=== PATIENT | female | born 1970 | race Caucasian/White ===

== ENCOUNTER 2019-08-08 14:41 | Inpatient (IN) | payer MEDICAID, SELFPAY ==
[2019-08-08] MEDS ORDERED: Ketorolac Tromethamine 30 MG/ML VIAL ONE (16:58)
[2019-08-08 17:07] LABS: #Basophils 0.1 thou/uL (0.0-0.2); #Eosinphils 0.4 thou/uL (0.0-0.7); #Lymphocytes 2.7 thou/uL (1.20-3.40); #Monocytes 0.5 thou/uL (0.11-0.59); #Neutrophils 11.5 thou/uL (1.40-6.50); %Basophils 0.4 % (0.0-1.0); %Eosinophils 2.5 % (0.0-10.0); %Lymphocytes 17.6 % (21.0-51.0); %Monocytes 3.2 % (0.0-10.0); %Neutrophils 76.3 % (42.0-75.0); Hemoglobin 15.1 g/dL (12.0-16.0); Mean Corpuscular HGB CONC 34.8 g/dL (32.0-36.0); Mean Corpuscular Hemoglobin 29.3 pg (27.0-31.0); Mean Corpuscular Volume 84.2 fL (78.0-98.0); Mean Platelet Volume 6.8 fL (7.4-10.4); Platelet Count 285 thou/uL (130-400); RBC Distribution Width 11.5 % (11.5-14.5); Red Blood Cell (RBC) Count 5.15 mill/uL (4.20-5.40); White Blood Cell (WBC) Count 15.1 thou/uL (4.8-10.8)
[2019-08-08 17:26] LABS: Bacteria/HPF 4+ HPF (None Seen); Bilirubin Negative (Negative); Blood, Urine 2+ (Negative); Clarity Turbid (Clear); Glucose, Urine (Dipstick) Normal (Negative); Leukocyte 250 Leu/uL (Negative); Nitrite 1+ (Negative); Pregnancy Test - Urine (BHCG) Negative (Negative); Pregu Control Background? CLEAR/WHITE (CLR/WHITE); Pregu Control Bar Appear? YES (CONTROL BAR); Protein, Urine (Dipstick) 20 mg/dL (Neg-Trace); RBC/HPF Greater than 50 HPF (0-3); Specific Gravity 1.024 (1.002-1.036); WBC/HPF 21-50 HPF (0-3)
[2019-08-08 17:38] LABS: ALT (SGPT) 37 U/L (8-55); AST (SGOT) 39 U/L (5-34); Albumin 4.1 g/dL (3.5-5.0); Alkaline Phosphatase 106 U/L (40-110); Anion Gap 13 mmol/L (10-20); BUN (Urea Nitrogen) 12 mg/dL (7.0-18.7); Bilirubin, Total 0.5 mg/dL (0.2-1.2); Calc. Creatinine Clearance 0 mL/min (70-130); Calcium 9.5 mg/dL (7.8-10.44); Carbon Dioxide 21 mmol/L (22-29); Chloride 106 mmol/L (98-107); Estimated GFR-MDRD Greater than 90; Globulin 3.5 g/dL (2.4-3.5); Glucose 89 mg/dL (70-105); Lipase 31 U/L (8-78); Potassium 3.6 mmol/L (3.5-5.1); Protein, Total 7.6 g/dL (6.0-8.3); Sodium 136 mmol/L (136-145)
[2019-08-08] MEDS ORDERED: cefTRIAXone\\ROCEPHIN 1 GM VIAL ONE (17:53)
--- NOTE | 2019-08-08 18:43 | CT ---
CT abdomen and pelvis noncontrast No prior comparison CLINICAL HISTORY: Left flank pain FINDINGS: Proximal left ureteral calculus measuring 9 mm results in mild to moderate left hydronephro sis. No right-sided urolithiasis. Hepatic steatosis. Prior cholecystectomy. There is colonic diverticulosis. There is motion artifact. There is heterogeneity of the bilateral adnexa, more notable on the right. Mild heterogeneity of the uterus also noted. No free air. No significant ascites. IMPRESSION: Mild to moderate left hydronephrosis as result of 9 mm proximal left ureteral calculus. R ecommend urology consultation for further care. Heterogeneity of uterus and adnexa. Follow-up with pelvic ultrasound recommended to further evaluate. Additional details are described above, within limitations of noncontrast technique. Transcribed Date/Time: 08/08/2019 6:51 PM
[2019-08-08] MEDS ORDERED: Ondansetron PF 4 MG/2 ML Vial IVP PRN (21:17)
[2019-08-08] MEDS ORDERED: Ondansetron ODT 4 MG TAB SL PRN (21:17)
[2019-08-08] MEDS ORDERED: Morphine 2 MG/ML SYRINGE SLOW IVP PRN (21:18)
[2019-08-08] MEDS ORDERED: Morphine 4 MG/ML VIAL SLOW IVP PRN (21:19)
[2019-08-08 21:57] VITALS: BMI 25.7
[2019-08-08] MEDS: Lactated Ringer's 1,000 ML IV SCH (23:04)
[2019-08-09] MEDS: Lactated Ringer's 1,000 ML IV SCH (05:09)
[2019-08-09 06:28] LABS: #Eosinphils 0.5 thou/uL (0.0-0.7); #Lymphocytes 3.1 thou/uL (1.20-3.40); #Monocytes 0.8 thou/uL (0.11-0.59); #Neutrophils 8.1 thou/uL (1.40-6.50); %Basophils 0.3 % (0.0-1.0); %Eosinophils 3.6 % (0.0-10.0); %Monocytes 6.4 % (0.0-10.0); %Neutrophils 64.6 % (42.0-75.0); Hemoglobin 13.8 g/dL (12.0-16.0); Mean Corpuscular HGB CONC 34.7 g/dL (32.0-36.0); Mean Corpuscular Hemoglobin 29.9 pg (27.0-31.0); Mean Corpuscular Volume 86.1 fL (78.0-98.0); Mean Platelet Volume 6.9 fL (7.4-10.4); Platelet Count 246 thou/uL (130-400); RBC Distribution Width 11.7 % (11.5-14.5); Red Blood Cell (RBC) Count 4.63 mill/uL (4.20-5.40); White Blood Cell (WBC) Count 12.5 thou/uL (4.8-10.8)
[2019-08-09 07:15] LABS: ALT (SGPT) 28 U/L (8-55); AST (SGOT) 29 U/L (5-34); Albumin 3.5 g/dL (3.5-5.0); Alkaline Phosphatase 94 U/L (40-110); Anion Gap 12 mmol/L (10-20); BUN (Urea Nitrogen) 9 mg/dL (7.0-18.7); Calc. Creatinine Clearance 116 mL/min (70-130); Calcium 8.6 mg/dL (7.8-10.44); Carbon Dioxide 20 mmol/L (22-29); Chloride 106 mmol/L (98-107); Estimated GFR-MDRD Greater than 90; Glucose 84 mg/dL (70-105); Potassium 3.6 mmol/L (3.5-5.1); Protein, Total 6.5 g/dL (6.0-8.3); Sodium 134 mmol/L (136-145)
[2019-08-09] MEDS ORDERED: Promethazine HCl 25 MG/ML VIAL IM PRN ×2 (12:59→14:50)
[2019-08-09] MEDS ORDERED: Promethazine HCl 25 MG/ML VIAL SLOW IVP PRN ×2 (12:59→14:50)
[2019-08-09] MEDS ORDERED: Ondansetron HCl/PF 4 MG/2 ML Vial IVP PRN (12:59)
[2019-08-09] MEDS ORDERED: cefTRIAXone\\ROCEPHIN 1 GM VIAL ONE (13:53)
[2019-08-09] MEDS ORDERED: Sodium Chloride 0.9% 100 ML ONE (13:53)
[2019-08-09] MEDS ORDERED: Fentanyl 100 MCG/2 ML VIAL ONE (14:00)
[2019-08-09] MEDS ORDERED: PACU-Morphine 4MG/ML VIAL SLOW IVP PRN (14:50)
[2019-08-09] MEDS ORDERED: Ketorolac Tromethamine 30 MG/ML VIAL IVP PRN (14:50)
[2019-08-09] MEDS ORDERED: Meperidine HCl/PF 25 MG/ML VIAL SLOW IVP PRN (14:50)
[2019-08-09] MEDS ORDERED: Morphine 2 MG/ML SYRINGE SLOW IVP PRN (16:28)
[2019-08-09] MEDS: traMADol HCl 50 MG TAB PO PRN (19:54)
[2019-08-09] MEDS: Oxybutynin 5 MG TAB PO PRN (20:05)
[2019-08-09] MEDS: Phenazopyridine HCl 97.5 MG TABLET PO PRN (20:05)
--- NOTE | 2019-08-09 20:56 | OP ---
DATE OF PROCEDURE: 08/09/2019 SERVICE: Urology. PREOPERATIVE DIAGNOSIS: Left ureteral stone with urinary tract infection. POSTOPERATIVE DIAGNOSIS: Left ureteral stone with urinary tract infection. PROCEDURE PERFORMED: Cystoscopy with left ureteral stent placement, 6 x 24 double-J stent. INDICATION FOR PROCEDURE: Ms. Botello is a 49-year-old female, who presented to the ER with left flank pain and a CT demonstrating a 9-mm proximal ureteral stone. She had evidence of urinary tract infection by UA. She has already been started on antibiotics and we are now placing ureteral stent to prevent sepsis. Risks and benefits of the procedure have been discussed and she has agreed to proceed forward. DESCRIPTION OF PROCEDURE: After identification of armband and verification of consent, the patient was brought back to the operating room where she underwent general anesthesia with an LMA. She was then placed in dorsal lithotomy position and prepped and draped in usual sterile fashion. After appropriate time-out, a lubricated 22-Spanish rigid cystoscope was introduced per urethra into the bladder and attention turned toward the left ureteral orifice. The orifice was cannulated with a 0.035 Sensor wire up to the level of renal pelvis. A 6 x 24 double-J stent was advanced over the Sensor wire up to the level of the renal pelvis and the wire removed leaving a good curl in the kidney and a good curl in the bladder. The bladder was then emptied and the cystoscope removed. The patient then awakened, taken to PACU for recovery in stable condition. COMPLICATIONS: None. ESTIMATED BLOOD LOSS: Minimal. RETAINED TUBES AND DRAINS: A 6 x 24 double-J stent on the left. SPECIMENS: None. FINDINGS: There is a possible stone that may have been the ureteral stone which was displaced into the lower pole during stent placement. Alternatively, it is possible the stone is radiolucent. DISPOSITION: The patient will be kept in the hospital until the culture results finalized. At that point, she can be discharged home on oral antibiotics and plan for definitive ureteroscopy at a later date. Job ID: [id number]
[2019-08-09] MEDS ORDERED: FLU VACC QS2019-20(6MOS UP)/PF 60 MCG/0.5 ML SYRINGE IM ONE (21:00)
--- NOTE | 2019-08-09 21:12 | HP ---
REASON FOR ADMISSION: Urinary tract infection with ureteral stone. CHIEF COMPLAINT: "My back hurts and I have a kidney stone." HISTORY OF PRESENT ILLNESS: Mrs. Botello is a 49-year-old female with a history of nephrolithiasis who presented to the emergency room with approximately a 1-to 2-day history of left flank pain. She stated the pain started yesterday and progressively got worse to the point, where she was having uncontrolled pain with nausea, but no vomiting. She had no fevers. She did not have any hematuria. The pain did radiate somewhat around toward her groin, but mainly stayed in her left back. It was a sharp stabbing nature. She went to the emergency room where a CT was done, which demonstrated a 9-mm left ureteral stone with [id number] hydronephrosis. Her urinalysis had evidence of a urinary tract infection, although she did not have any symptoms of sepsis, SIRS criteria, or systemic toxicity. Due to the infection and ureteral stone, I recommended that she be admitted to the hospital with IV antibiotics and for ureteral stent placement. On my discussion with the patient, she states she has had no prior problems with recurrent urinary tract infections, although she has had previous kidney stones and apparently has undergone ureteroscopy with laser lithotripsy in the past with a urologist here at [place], although I cannot find any record of this within the computer system. She does not have any significant voiding difficulties or voiding problems. She denies any history of spontaneous hematuria. ALLERGIES: NONE. CURRENT MEDICATIONS: None. PAST MEDICAL HISTORY: Significant for nephrolithiasis. PAST SURGICAL HISTORY: Significant for prior ureteroscopy and laser lithotripsy with prior cholecystectomy. FAMILY HISTORY: Noncontributory for nephrolithiasis. SOCIAL HISTORY: The patient denies alcohol abuse, illicit drug use, or tobacco abuse. REVIEW OF SYSTEMS: A 12-point review of system was reviewed with the patient and negative other than what was commented on the HPI. PHYSICAL EXAMINATION: VITAL SIGNS: Temperature 97.8, pulse 64, respirations 14, blood pressure 134/79, and saturation 93% on room air. GENERAL: No apparent distress, communicative and alert, conversant, well nourished, well developed, appears stated age. HEENT: Normocephalic, atraumatic. Pupils are symmetric and round. Sclerae are nonicteric. Moist mucous membranes. Trachea midline. CARDIOVASCULAR: Regular rate and rhythm. Normal S1, S2. Symmetric pulses. CHEST: No increased work of breathing. Symmetric expansion of the lungs. Clear anteriorly. ABDOMEN: Soft, nontender, and nondistended. Positive bowel sounds. No significant CVA tenderness. No suprapubic tenderness. No organomegaly. Previously well-healed port site scars without hernia. GENITOURINARY: Deferred at this time. EXTREMITIES: No clubbing, cyanosis, or edema. MUSCULOSKELETAL: No joint deformities or joint erythema noted. Full range of motion. NEUROLOGIC: Cranial nerves 2 through 12 are grossly intact. No focal or sensory motor deficits identified. SKIN: Warm and dry. No rashes or lesions. Good turgor. PSYCHIATRIC: Alert and oriented x3. Appropriate mood and affect. LYMPHS: No enlarged lymph nodes in the cervical, supraclavicular, axillary, or inguinal regions. LABORATORY EVALUATION: The full set of labs are in the [facility] system, which I have reviewed. Of note, the patient's white count was 15.1, is now decreased to 12.5. Creatinine is 0.62. Urinalysis demonstrates nitrite positive urine with blood, leukocyte esterase, 4+ bacteria, squamous cells, and wbc's and rbc's. Urine culture taken upon admission shows mixed bacteria. There is isolation of pathogens in progress. ASSESSMENT AND PLAN: A 49-year-old female with a high likelihood of urinary tract infection with left ureteral stone without evidence of sepsis. She has already been started on ceftriaxone and we will continue this until cultures' result. If the cultures are contaminated, we will probably switch her to either levofloxacin or Cipro and treat for 7 days. She will go to the OR for a cystoscopy and left ureteral stent placement. I talked to her about stent placements and she is not familiar with this even though having had previous ureteroscopy. I went over the process, how it is done and postoperative care as well as postoperative restrictions and activities. I have also told her it is very important that she not disappear and keep follow up appointments to avoid significant harm, renal injury, or stone development due to a retained stent. Risks and benefits of the surgery were discussed, which include but were not limited to bleeding, worsening infection, damage to the ureter and ureteral strictures, inability to pass the stent, and need for further surgeries. She understands these risks and states she is willing to go forward with ureteral stenting. After treating with antibiotics, we will plan definitive stone treatment with laser lithotripsy in the future. I will plan to see her back as an outpatient afterward and we will pick a date for ureteroscopy in the future. Job ID: [id number]
[2019-08-10] MEDS: Phenazopyridine HCl 97.5 MG TABLET PO PRN ×2 (09:22→21:45)
[2019-08-10] MEDS: Oxybutynin 5 MG TAB PO PRN (09:22)
--- NOTE | 2019-08-10 13:55 | PRG ---
DATE OF SERVICE: 08/10/2019 SUBJECTIVE: The patient states she is feeling fine. She is having urinary frequency, but no significant pain or hematuria. OBJECTIVE: VITAL SIGNS: Temperature 98.6, pulse 69, respirations 16, blood pressure 131/80, saturation 97% on room air. GENERAL: No apparent distress. Communicative and alert. CARDIOVASCULAR: Regular rate and rhythm. ABDOMEN: Soft, nontender, and nondistended. Positive bowel sounds. EXTREMITIES: No clubbing, cyanosis, or edema. LABORATORY EVALUATION: The full set of labs are in the [facility] system, which I have reviewed. Urine cultures are still proceeding with mixed organisms, speciation to follow. ASSESSMENT AND PLAN: A 49-year-old female with a urinary tract infection with left ureteral stone, status post left ureteral stent placement. Once cultures are finalized, she can be transitioned over to oral antibiotics and discharged home. If cultures come back mixed with no identifiable organism, we will just plan to treat her with ciprofloxacin 500 mg p.o. b.i.d., for a total of 7 days, which would give her enough antibiotics to go to Tuesday. I will plan to bring her back on Tuesday for surgery for removal of the ureteral stone. I have gone over the surgery with her in detail including risks and benefits, the risks which include, but are not limited to bleeding, infection, damage to the ureter, ureteral injury or stricture, renal injury, incomplete stone removal, and need for further surgeries. She understands these risks and states she is willing to proceed forward. Surgery will be scheduled for next Tuesday. Job ID: [id number]
[2019-08-10] MEDS ORDERED: cefTRIAXone\\ROCEPHIN 1 GM in Sodium Chloride 0.9% 100 ML IVPB SCH (15:00)
[2019-08-10] MEDS: traMADol HCl 50 MG TAB PO PRN (21:45)
[2019-08-11 07:35] VITALS: BP 132/80; TEMP 98
--- NOTE | 2019-08-11 10:17 | DIS ---
DATE OF ADMISSION: 08/08/2019 DATE OF DISCHARGE: 08/10/2019 PRIMARY UROLOGIST: Dr. García Harmon. DISPOSITION: To home. DISCHARGE INSTRUCTIONS: followup, outpatient ureteroscopy laser lithotripsy next Tuesday. DISCHARGE MEDICATIONS: 1. Tramadol 50 mg #30 one to two p.o. q.6 hours p.r.n. 2. Ditropan 10 mg XL one p.o. daily. 3. Colace 100 mg one p.o. b.i.d. 4. Ciprofloxacin 500 mg one p.o. b.i.d. for 7 days. 5. Azo p.r.n. [id number]-[id number] for dysuria. BRIEF HOSPITAL COURSE: Ms. Botello is a 49-year-old female, non- Uzbek speaking, seen by Dr. Harmon due to obstructing ureteral calculi, status post stent. Her urine culture is contaminated demonstrating mixed kenan. She is clinically stable for discharge. Per Dr. Harmon's recommendations, if it is mixed kenan, he is recommending ciprofloxacin for course of 7 days. He has arranged outpatient ureteroscopy, laser lithotripsy next Tuesday. I informed the patient that she should contact our office next week to confirm the course of her care with Dr. Harmon. CONDITION: Stable. Job ID: [id number] MTDD
--- NOTE | 2019-08-11 14:07 | EKG ---
Test Reason : Blood Pressure : / mmHG Vent. Rate : 068 BPM Atrial Rate : 068 BPM P-R Int : 134 ms QRS Dur : 074 ms QT Int : 388 ms P-R-T Axes : 061 006 022 degrees QTc Int : 412 ms Normal sinus rhythm with sinus arrhythmia Normal ECG Confirmed by AIDEN FOY ([id number]), order editor LANDON CARBALLO ([id number]) on 08/11/2019 2:06:43 PM Referred By: Confirmed By:AIDEN FOY
--- NOTE | 2019-08-14 05:53 | PQF ---
NANCY NIEVES KATHY [id number] CLINICAL DOCUMENTATION CLARIFICATION FORM: POST DISCHARGE Addendum to original discharge summary date: ____ Late entry note date: __ DATE: 08/14/19 ATTN: Deepti Perez Please exercise your independent, professional judgment in responding to the clarification form. Clinical indicators are provided on the bottom of this form for your review In your clinical opinion, based on clinical findings below, can you please clarify clinical significance of Hydronephrosis in CT impression if : Please check appropriate box(s): [ ] Hydronephrosis is clinically significant [ ] Hydronephrosis is not clinically significant [ ] Other diagnosis [ ] Unable to determine In addition, please specify: Present on Admission (POA): [ ] Yes [ ] No [ ] Unable to determine For continuity of documentation, please document condition throughout progress notes and discharge summary. Thank You. CLINICAL INDICATORS - SIGNS / SYMPTOMS / LABS CT Abdomen 08/08 Impression :Mild to moderate left hydronephrosis as result of 9mm proximal left ureteral calculus H&P 08/11 Dr. Harmon She states her back hurts and have a kidney stone H&P 08/11 Dr. Harmon History of nephrolithiasis H&P 08/11 Dr. Harmon Presented to emergecy room with approximately a 1-to- 2 day history of left flank pain H&P 08/11 Dr. Harmon Her urinary had evidence of urinary tract infection RISK FACTORS H&P 08/08 p2 - Urinary tract infection H&P 08/08 p2 - Left Ureteral stone TREATMENTS: MAR 08/08/19 IV Ceftriaxone Operative note 08/09 -Cystocopy and left ureteral stent placement MTDD
== END 2019-08-11 10:10 | disposition home or self-care (01) | DRG 660 ==
LOC: ERS 14:41 → SURG A 21:04
PROVIDERS: ADMIT Urology; ATTEND Urology
PROC: 0T778DZ Dilation of Left Ureter with Intraluminal Device, Via Natural or Artificial Opening Endoscopic (ICD-10-PCS; principal; 2019-08-09)
PROC: 3E02340 Introduction of Influenza Vaccine into Muscle, Percutaneous Approach (ICD-10-PCS; 2019-08-09)
DX: N20.1 Calculus of ureter (principal); N39.0 Urinary tract infection, site not specified; Z23 Encounter for immunization; Z90.49 Acquired absence of other specified parts of digestive tract; Z87.442 Personal history of urinary calculi
CPT/HCPCS: 36415; 36416; 74176; 76000; 80053; 81003; 81015; 81025; 83690; 85025; 87086; 93005; 96361; 96365; 96375; J0131; J0696; J1885; J2270; J3010; J3490

== ENCOUNTER 2019-08-17 09:15 | Day surgery (SDC) | payer SELFPAY ==
[2019-08-16 11:30] VITALS: BMI 28.7
[2019-08-17] MEDS ORDERED: Levofloxacin 500 mg/D5W 100 ml Premix Bag ONE (09:39)
--- NOTE | 2019-08-17 10:27 | RAD ---
XR Chest Pa Lat STANDARD HISTORY: Preoperative evaluation COMPARISON: None FINDINGS: The heart size is normal. The lungs are well expanded without focal areas of consolidation, pneumothorax or pleural effusions. IMPRESSION: No radiographic evidence of acute cardiopulmonary process.
[2019-08-17] MEDS ORDERED: Fentanyl 100 MCG/2 ML VIAL ONE ×2 (11:59→13:04)
[2019-08-17] MEDS ORDERED: Ketorolac Tromethamine 30 MG/ML VIAL ONE (12:45)
[2019-08-17] MEDS ORDERED: Dexamethasone 20 MG/5 ML VIAL ONE (12:45)
[2019-08-17] MEDS ORDERED: Ondansetron PF 4 MG/2 ML Vial ONE (12:45)
[2019-08-17] MEDS ORDERED: PROPOFOL 200 MG/20 ML VIAL ONE (12:45)
[2019-08-17] MEDS ORDERED: B & O ONE (13:04)
[2019-08-17] MEDS ORDERED: Phenazopyridine HCl 97.5 MG TABLET ONE (14:07)
[2019-08-17] MEDS ORDERED: Oxybutynin 5 MG TAB ONE (14:07)
--- NOTE | 2019-08-17 16:59 | OP ---
DATE OF PROCEDURE: 08/17/2019 SERVICE: Urology. PREOPERATIVE DIAGNOSIS: Left ureteral stone. POSTOPERATIVE DIAGNOSIS: Left renal stone. PROCEDURES PERFORMED: Left ureteroscopy, laser lithotripsy, basket extraction of stone, and placement of a 6 x 24 double-J stent with string attached. INDICATIONS FOR PROCEDURE: Ms. Botello is a 49-year-old female, who initially presented last week for ureteral stone with urinary tract infection. She was treated with antibiotics and sent home on antibiotics after undergoing an urgent ureteral stent placement. She has completed her week of antibiotics and is now coming in for definitive stone management with ureteroscopy. All risks and benefits as well as alternatives have been discussed and she has agreed to proceed forward. DESCRIPTION OF PROCEDURE: After identification of armband and verification of consent, the patient was brought back to the operating room. She underwent general anesthesia with an LMA. She was then placed in the dorsal lithotomy position and prepped and draped in usual sterile fashion. After appropriate time-out, a lubricated 22-Turkish rigid cystoscope was introduced per urethra into the bladder and attention turned to the left ureteral orifice, from which there was a stent emanating. Flexible grasper was used to grasp the stent and bring it up to the level of the urethral meatus. A 0.035 Sensor wire was advanced up to the ureteral stent into the renal pelvis. The stent was then removed leaving the wire in place. The dual-lumen catheter was then advanced over the Sensor wire up to the level of proximal ureter. An Amplatz Super Stiff wire was then placed through the second lumen into the renal pelvis. Dual-lumen was then removed and an 11/13 x 36 cm ureteral access sheath was advanced over the Super Stiff wire up to the level of the proximal ureter. The inner cannula and the Super Stiff wire were then removed leaving the outer sheath and Sensor wire in place as a safety wire. A flexible digital ureteroscope was then passed into the ureteral access sheath into the renal pelvis, where the stone was encountered in the lower pole of the kidney. There were no other stones noted on pyeloscopy. A 273 micron ball-tip laser fiber was used to fragment the stone into smaller pieces and the pieces were then extracted using a 1.9-Turkish ZeroTip Nitinol basket. Upon completion, there were no stone fragments remaining that were over a millimeter in size. There were a few small granules in the lower pole, satisfied that all the stone had been removed. Pull-back ureteroscopy was employed, no additional stones were found within the ureter. The ureteroscope and sheath were then removed and the cystoscope was backloaded over the Sensor wire back into the bladder. A 6 x 24 double-J stent with string attached was advanced over the Sensor wire into the kidney. The wire was removed leaving a good curl in the kidney and a good curl in the bladder. The bladder was emptied and the cystoscope removed. The string to the stent was affixed to the patient's inner thigh with an OpSite. A B and O suppositories were placed in the rectum. She was then taken out of positioning, awakened, taken to PACU for recovery in stable condition. COMPLICATIONS: None. ESTIMATED BLOOD LOSS: Minimal. RETAINED TUBES OR DRAINS: A 6 x 24 double-J stent on the left with string attached. SPECIMEN: Stone for stone analysis. DISPOSITION: The patient will be discharged home and follow up with me in approximately 2 to 3 weeks for a postop check. She will remove her stent on Tuesday morning by gently pulling on the string. Job ID: [id number]
[2019-08-21 14:09] LABS: CA Oxalate Dihydrate 10 % (.); CA Oxalate Monohydrate 75 % (.); CA Phosphate 15 % (.); Color Brown (.)
== END 2019-08-17 15:20 | disposition home or self-care (01) ==
LOC: SDC 09:15
PROVIDERS: ATTEND Urology
PROC: 0T778DZ Dilation of Left Ureter with Intraluminal Device, Via Natural or Artificial Opening Endoscopic (ICD-10-PCS; principal; 2019-08-17)
PROC: 0TF48ZZ Fragmentation in Left Kidney Pelvis, Via Natural or Artificial Opening Endoscopic (ICD-10-PCS; principal; 2019-08-17)
DX: N20.0 Calculus of kidney (principal)
CPT/HCPCS: 71046; 76000; 82365; 88300; C1769; J1100; J1885; J1956; J2405; J2704; J3010